=== PATIENT | female | born 1975 | race Caucasian/White ===

== ENCOUNTER 2019-11-05 12:46 | Emergency (ER) | payer MEDICAID, SELFPAY ==
[2019-11-05 12:47] VITALS: BP 145/79; PULSE 86; RESP 16; TEMP 36.6; O2SAT 100; BMI 21.6
[2019-11-05 12:50] VITALS: BP 145/79; PULSE 80; RESP 16; TEMP 36.6; O2SAT 100
--- NOTE | 2019-11-05 13:02 | CT_ITS ---
STUDY: CT ABDOMEN AND PELVIS WITH CONTRAST REASON FOR EXAM: Female, 44 years old. Nausea vomiting and diarrhea. Previous small bowel obstruction. Previous gastric bypass. RADIATION DOSAGE (If Supplied By Facility): CTDIvol = ( 9.37 ) mGy, DLP = ( 402.01 ) mGycm TECHNIQUE: Transaxial images were obtained from the dome of the diaphragm to the symphysis pubis without oral contrast. IV 100mL Isovue-370 was administered. Sagittal and coronal images were reconstructed. Individualized dose optimization techniques were used for this CT. COMPARISON: None. FINDINGS: The visualized lung bases are unremarkable. The visualized portions of the heart are within normal limits. Normal liver. There are surgical clips in the gallbladder fossa consistent with a prior cholecystectomy. Normal spleen. Normal pancreas. Normal bilateral adrenal glands. Normal right kidney. Normal left kidney. Evaluation of the GI tract is limited by absence of oral contrast. Surgical changes of gastric bypass are seen. Small hiatal hernia. No dilated loops of bowel or evidence for obstruction. Cannot exclude segmental thickening of the tidwell of the small or large bowel. Cannot exclude enteritis or colitis. Moderate diffuse fecal retention. Diverticulosis without definite diverticulitis. Appendix within normal limits. Normal abdominal aorta. Normal inferior vena cava. Normal retroperitoneum. Normal urinary bladder. Normal visualized uterus. There is a 4.4 cm left ovarian/adnexal cyst. Normal abdominal wall. Normal osseous structures. CT/Abdomen/Pelvis W IV Cont ONLY IMPRESSION: There is no definite acute abnormality. Evaluation of GI tract is limited by the absence of oral contrast. Status post gastric bypass, small hiatal hernia. Electronically Signed: Santhosh Avila MD at 14:40 EDT , Service support ,
--- NOTE | 2019-11-05 13:06 | ED.DCSUM_ITS ---
- ER Visit Summary Date of Service: 11/05/19 Chief Complaint: Abdominal pain History of Present Illness: The patient is a 44 F with no primary care physician. She reports that she has abdominal pain began 2 days ago. Is an aching, cramping pain that is 9-10 at worst and 5-10 currently. Is worsened by food and standing up. Is relieved by remaining still laying on her side. She reports has been nauseated and vomited 6 times. No blood in her emesis. She had 1 episode of diarrhea yesterday. There was no blood in her stools or black tarry stools. She reports she has not had a bowel pain for 2 weeks prior to that. She reports that she is to use Dulcolax and taken 2 enemas without any relief. States that this is similar to when she had a small bowel obstruction. She has a history of gastric bypass in 2008 that was performed in [facility]. Patient denies any dysuria frequency. She is on her menstrual period now. Physical Examination: Vitals: Stable. Afebrile. General: Well-nourished and well-developed. Head: Normocephalic atraumatic. Neck: Supple, no lymphadenopathy. No JVD. Nontender. Cardiovascular: Regular rate and rhythm. No murmurs. Respiratory: No respiratory distress. Clear to auscultation bilaterally. Abdominal: Soft, mild diffuse tenderness to palpation moderate epigastric tenderness, nondistended, normal bowel sounds. No guarding, rebound, or peritoneal signs. Back: Nontender. Extremities: Nontender, no edema. Skin: Normal color, no rash. Neurologic: Alert and oriented ?3. Cranial nerves II through XII are intact. Normal strength and sensation. Psych: Normal affect. Test Results: CBC shows an H&H of 7.9 30.3, 7 neutrophils 84, lymphocytes 11. Her hemoglobin was 7.1 in November 2015. It was 9.2 in December 2015 after transfusion. Chem-7 shows a CO2 of 17. LFTs are normal. Lipase is normal. UA shows blood and ketones. test is negative. Clinical Impression(s) from Imaging Studies Abdomen/Pelvis CT 11/05/19 13:02 IMPRESSION: There is no definite acute abnormality. Evaluation of GI tract is limited by the absence of oral contrast. Status post gastric bypass, small hiatal hernia. Electronically Signed: Santhosh Avila MD at 14:40 EDT , Service support , Emergency Department Course and Treatment: Patient had an IV placed. She was given a liter of normal saline. She is given morphine and Zofran IV. She is resting comfortably. Treatment Plan: Patient feels well and like to go home. She will be discharged with magnesium citrate, Zofran, and iron. Instructed to follow-up Dr. Daugherty in 1 to 2 days if not improving. Return to the emergency department for any worsening symptoms. Disposition: To home in improved and stable condition. Impression: 1. Anemia. 2. Abdominal pain, uncertain cause. This note was generated with [employer] dictation software. It may contain incorrect words, spelling, and punctuation that were not noted in review of the chart prior to signing ED Disposition - Plan for ED Patient: Disposition: Home or Assisted Living Instructions: ED Abdominal Pain Unkn Cause Fem Prescriptions: Magnesium Citrate [Citrate Of Magnesia] 300 ml PO X1 #1 bottle Prescription Printed Ferrous Sulfate [Iron] 325 mg PO DAILY #30 tab Prescription Printed Ondansetron [Zofran Odt] 4 mg PO Q8H PRN PRN #10 tab PRN Reason: Nausea Prescription Printed Referrals: Abdirizak Daugherty DO [STAFF PHYSICIAN] - 1-2 Days if not improving
[2019-11-05 13:36] LABS: Absolute Lymphocyte Count 0.51 X10^3/uL (0.83-4.51); Basophil# 0.03 X10^3/uL; Basophil% 0.6 % (0-1); Eosinophil# 0.04 X10^3/uL; Eosinophils% 0.8 % (0-5); Hematocrit 30.3 % (37-47); Hemoglobin 7.9 g/dL (12.0-15.0); Lymphocyte # 0.51 X10^3/ul (4.0); Lymphocyte % 10.7 % (19-41); Mean Corp Hgb Conc 26.1 g/dL (32-36); Mean Corpuscular Hgb 17.1 pg (27.0-32.0); Mean Corpuscular Volume 65.7 fL (81-99); Mean Platelet Vol. 9.5 fl (6.2-12.0); Monocyte# 0.17 X10^3/uL; Monocyte% 3.6 % (0-10); NRBC Flagged by Analyzer 0 % (0-5); Neutrophil # 3.98 X10^3/uL (2.7-7.7); Neutrophil % 83.9 % (47-70); POSITIVE DIFFERENTIAL YES; POSITIVE MORPHOLOGY YES; Platelet Count 411 K/mm3 (150-450); RBC Distribution Width CV 20.5 % (11.6-14.6); RBC Distribution Width SD 46.5 fl (35.1-43.9); Red Blood Count 4.61 M/mm3 (4.2-5.4); White Blood Count 4.8 K/mm3 (4.4-11.0)
[2019-11-05 13:38] LABS: Differential Indicated SCAN CRITERIA MET
[2019-11-05] MEDS: 0.9% Normal Saline 1,000 ML 1000 ML IV (13:41)
[2019-11-05] MEDS: Ondansetron 4 MG/2 ML Vial IV (13:44)
[2019-11-05 13:46] LABS: Internal QC Validated? YES +Cl - CLEAR BKGD; Pregnancy, Serum, hCG Quali. NEGATIVE Negative
[2019-11-05] MEDS: Morphine 4 MG/ML Syringe IV (13:46)
[2019-11-05 13:50] LABS: ALB/GLOB Ratio 1.2 RATIO (0.9-2.4); AST(SGOT) 16 U/L (15-37); Alanine Aminotransfer ALT/SGPT 15 U/L (13-56); Albumin, Serum 4.5 g/dL (3.2-5.0); Alkaline Phosphatase 62 U/L (45-117); Anion Gap 13 (5-15); BUN 9 mg/dL (7-18); BUN/Creat Ratio 12.7 RATIO (10-20); Calcium,Total 9.2 mg/dL (8.5-10.1); Chloride 107 mmol/L (98-107); Creatinine, Serum 0.71 mg/dL (0.55-1.02); EST Glomerular Filtration Rate 94 mL/min (>60); Est Glom Filt Rate - Afr Amer 114 mL/min (>60); Globulin 3.7 g/dL (2.2-4.2); Glucose 93 mg/dL (74-106); Lipase 73 U/L (73-393); Potassium 3.7 mmol/L (3.5-5.1); Protein, Total 8.2 g/dL (6.4-8.2); Sodium Level 137 mmol/L (136-145)
[2019-11-05 13:56] LABS: Color, Urine Yellow (Yellow); Glucose, Dipstick Normal (Normal); Leukocyte Esterase-Dipstick Negative /ul (Negative); Nitrite-Dipstick Negative (Negative); Occult Blood-Urine 250 /ul (Negative); Protein-Dipstick 30 mg/dl (Negative); Specific Gravity, Urine 1.025 (1.002-1.030); Urine Bilirubin Dipstick Negative (Negative); Urine Clarity Sl. Cloudy (Clear); Urine Urobilinogen Normal (Normal)
[2019-11-05 13:57] LABS: Mucous, Urine 0 SEEN /hpf (<or=2+); White Blood Cells 0 SEEN /hpf (0-5)
[2019-11-05 14:01] LABS: Ketone-Dipstick 150 mg/dl (Negative)
[2019-11-05 14:05] LABS: Bacteria RARE /hpf (None Seen); Red Blood Cells-Urine 0-5 SEEN /hpf (0-5); Squamous Epithelial Cells - UA 0-5 SEEN /hpf (5-10)
[2019-11-05 14:24] LABS: Platelet Estimate ADEQUATE (ADEQ)
[2019-11-05 14:25] LABS: Anisocytosis 2+; Hypochromasia 2+; Target Cells 2+
[2019-11-05 14:42] VITALS: BP 106/66; PULSE 84; RESP 14; TEMP 36.7; O2SAT 100
[2019-11-05 15:14] VITALS: BP 106/66; PULSE 84; RESP 14; TEMP 36.7; O2SAT 100
== END 2019-11-05 15:17 | disposition home or self-care (01) ==
LOC: ED 13:29
PROVIDERS: Emergency Provider Emergency Medicine
DX: D64.9 Anemia, unspecified (principal); R11.2 Nausea with vomiting, unspecified; R19.7 Diarrhea, unspecified; R10.9 Unspecified abdominal pain; K44.9 Diaphragmatic hernia without obstruction or gangrene; Z98.84 Bariatric surgery status; Z90.49 Acquired absence of other specified parts of digestive tract
CPT/HCPCS: 74177; 80053; 81001; 83690; 84703; 85025; 96361; 96374; 96375; 99285; J7030; Q9967; A4216; J2405